=== PATIENT | male | born 1985 | race Caucasian/White ===

== ENCOUNTER 2023-01-25 00:01 | Emergency (ER) | payer OTHER, SELFPAY ==
--- NOTE | ~2023-01-25 | CT_ITS ---
Non-contrast Head CT History: Headache Technique: Axial non-contrast imaging of the brain was performed. Dose reduction technique was used on this scan by utilizing automated exposure control and iterative reconstruction technique. The dose -length product (DLP) was 681.00 mGy-cm. Findings: There is no evidence of intracranial hemorrhage, mass lesion, or acute infarct. Brain par enchyma appears normal. The ventricles and subarachnoid spaces are normal in size. The calvarium ap pears normal. The visualized paranasal sinuses and mastoid air cells are clear. Impression: No significant abnormality seen. Reviewed, dictated and finalized at location . [employer] Impression: No significant abnormality seen.
[2023-01-25 00:10] VITALS: BP 118/76; PULSE 63; RESP 18; TEMP 36.9; O2SAT 98
[2023-01-25 02:30] VITALS: BP 120/76; PULSE 90; RESP 15; O2SAT 98
[2023-01-25 02:36] LABS: Basophils Percent Auto 0.3 % (0.2-1.2); Eosinophils Percent Auto 0.2 % (0-4.4); Hematocrit 48.1 % (42.0-52.0); Hemoglobin 16.5 g/dL (14.0-18.0); Immature Granulocyte Absolute 0.04 K/mm3 (0.00-0.031); Immature Granulocyte Percent A 0.3 % (0-0.5); Lymphocytes Absolute Auto 1.78 K/mm3 (0.9-3.2); Lymphocytes Percent Auto 14.3 % (18.3-44.2); Mean Corpuscular HGB Conc 34.3 g/dl (32-36); Mean Corpuscular Hemoglobin 30.4 pg (26-34); Mean Corpuscular Volume 88.7 fl (80-100); Mean Platelet Volume 10.6 fl (7.4-10.4); Monocytes Absolute Auto 0.5 K/mm3 (0.1-0.6); Monocytes Percent Auto 3.8 % (2.6-8.5); Neutrophils Absolute Auto 10.1 K/mm3 (1.3-6.7); Neutrophils Percent Auto 81.1 % (45.5-73.1); Platelet Count Result 273 k/mm3 (150-375); Red Blood Count 5.42 M/mm3 (4.6-6.20); Red Cell Distribution Width 13.8 % (11.5-14.5); White Blood Count 12.5 K/mm3 (4.5-10.0)
[2023-01-25 02:49] LABS: Appearance Urine Clear (Clear); Bacteria Urine None Seen /hpf; Bilirubin Urine Negative (Negative); Blood Urine Negative (Negative); Color Urine Yellow (Yellow); Glucose Urine UA Negative (Negative); Granular Casts Urine Present /lpf; Hyaline Casts Urine Present /lpf; Ketones Urine 1+ mg/dL (Negative); Leukocyte Esterase Ur Negative LEU/UL (Negative); Mucus Urine Present /lpf; Nitrate Urine Negative (Negative); Protein Urine Trace mg/dL (Negative); RBC Urine 0-2 /hpf (0-2); Specific Grav Ur 1.017 (1.001-1.035); Squamous Epithelial Cell Urine None seen /hpf (Few); Urobilinogen Urine 0.2 mg/dL (<2.0); WBC Urine 0-5 /hpf; pH Urine 5.5 (5.0-9.0)
[2023-01-25 02:50] LABS: Add Urine Microscopic? YES
[2023-01-25 02:51] LABS: Alanine Aminotransferase 30 U/L (6-50); Albumin Level 4.4 g/dL (3.5-5.1); Alkaline Phosphatase 90 U/L (38-126); Anion Gap 14 mmol/L (8-16); Aspartate Amino Transferase 32 U/L (17-59); Bilirubin,Total 0.7 mg/dL (0.2-1.3); Blood Urea Nitrogen 12 mg/dL (9-20); Calcium 8.4 mg/dL (8.4-10.2); Carbon Dioxide 21 mmol/L (22-30); Chloride 103 mmol/L (98-107); Estimated CRCL calculation 86 ml/min; Estimated Glomerular Filt Rate > 60; Glucose 103 mg/dL (65-110); Lipase 80 U/L (23-300); Potassium 3.9 mmol/L (3.4-5.0); Sodium 138 mmol/L (137-145)
[2023-01-25] MEDS: diphenhydrAMINE HCl INJ 50 MG/ML VIAL IV PUSH (04:38)
[2023-01-25] MEDS: SODIUM CHLORIDE 0.9% IV 1,000 ML 999 ML IV CONT (04:39)
[2023-01-25] MEDS: PROCHLORPERAZINE EDISYLATE 10 MG/2 ML VIAL IV PUSH (04:40)
[2023-01-25 05:56] VITALS: BP 120/74; PULSE 72; RESP 15; O2SAT 98
--- NOTE | 2023-01-25 06:24 | ED.GENADULT ---
HPI - General Adult General Chief complaint: Nausea/Vomiting/Diarrhea Stated complaint: vomiting Time Seen by Provider: 01/25/23 04:06 History of Present Illness HPI narrative: patient is a 37-year-old gentleman presents emerged for chief complaint of headache nausea vomiting patient reports he has been having some discomfort in the left temporal area his hand as a typical headache migraine patient states that see a couple drinks and her having worsening pain patient has nausea and vomiting with this as well. The patient reports no trauma Related Data Allergies Allergy/AdvReac Type Severity Reaction Status Date / Time cefaclor [From Ceclor] Allergy Unknown Verified 01/25/23 00:10 sulfamethoxazole Allergy Unknown Verified 01/25/23 00:10 [From Septra] trimethoprim [From Septra] Allergy Unknown Verified 01/25/23 00:10 Review of Systems Review of Systems: A 10 system review of systems was completed on the patient and is negative except for what is stated in the HPI. Nursing and ancillary documentation was reviewed. Exam Narrative: GENERAL: Well-appearing, well-nourished, and in no acute distress. HEAD: Normocephalic, atraumatic. EYES: PERRLA and EOMI. ENT: Nares clear, no rhinorrhea or epistaxis. Mucous membranes moist. NECK: Supple. CHEST: Clear to auscultation. No respiratory distress. HEART: Regular rate and rhythm. No murmur heard. Normal peripheral pulses. ABDOMEN: Soft, nontender, nondistended, normal active bowel sounds. EXTREMITIES: Normal range of motion. No edema. SKIN: Warm, dry, no rash. NEURO: No focal deficits. Alert and oriented x3. PSYCH: Normal mood and affect. Course Vital Signs Vital signs: Vital Signs Temperature 36.9 C 01/25/23 00:10 Pulse Rate 63 01/25/23 00:10 Respiratory Rate 18 01/25/23 00:10 Blood Pressure 118/76 01/25/23 00:10 Pulse Oximetry 98 01/25/23 00:10 Oxygen Delivery Room Air 01/25/23 00:10 Temperature 36.9 C 01/25/23 00:10 Pulse Rate 72 01/25/23 05:56 Respiratory Rate 15 01/25/23 05:56 Blood Pressure 120/74 01/25/23 05:56 Pulse Oximetry 98 01/25/23 05:56 Oxygen Delivery Room Air 01/25/23 00:10 Medical Decision Making MDM Narrative Medical decision making narrative: differential diagnosis includes migraine headache, intracranial hemorrhage, CT head showed no acute findings patient received IV fluids and anti medics and patient is feeling much better at this time headache has essentially resolved. Vital Signs Vital Signs: Vital Signs Temperature 36.9 C 01/25/23 00:10 Pulse Rate 63 01/25/23 00:10 Respiratory Rate 18 01/25/23 00:10 Blood Pressure 118/76 01/25/23 00:10 Pulse Oximetry 98 01/25/23 00:10 Oxygen Delivery Room Air 01/25/23 00:10 Temperature 36.9 C 01/25/23 00:10 Pulse Rate 72 01/25/23 05:56 Respiratory Rate 15 01/25/23 05:56 Blood Pressure 120/74 01/25/23 05:56 Pulse Oximetry 98 01/25/23 05:56 Oxygen Delivery Room Air 01/25/23 00:10 Lab Data 01/25/23 02:28 01/25/23 02:28 Labs: Lab Results 01/25/23 01/25/23 Range/Units 02:10 02:28 WBC 12.5 H (4.5-10.0) K/mm3 RBC 5.42 (4.6-6.20) M/mm3 Hgb 16.5 (14.0-18.0) g/dL Hct 48.1 (42.0-52.0) % MCV 88.7 (80-100) fl MCH 30.4 (26-34) pg MCHC 34.3 (32-36) g/dl RDW 13.8 (11.5-14.5) % Plt Count 273 (150-375) k/mm3 MPV 10.6 H (7.4-10.4) fl Immature Gran % (Auto) 0.3 (0-0.5) % Neut % (Auto) 81.1 H (45.5-73.1) % Lymph % (Auto) 14.3 L (18.3-44.2) % Cannon % (Auto) 3.8 (2.6-8.5) % Eos % (Auto) 0.2 (0-4.4) % Baso % (Auto) 0.3 (0.2-1.2) % Lymph # (Auto) 1.78 (0.9-3.2) K/mm3 Cannon # (Auto) 0.5 (0.1-0.6) K/mm3 Eos # (Auto) 0.0 (0-0.3) K/mm3 Baso # (Auto) 0.0 (0.0-0.1) K/mm3 Abs Immat Gran (auto) 0.04 H (0.00-0.031) K/mm3 Absolute Neuts (auto) 10.1 H (1.3-6.7) K/mm3 Absolute Nucleated
[2023-01-25 06:45] VITALS: BP 138/64; PULSE 88; RESP 15; O2SAT 100
== END 2023-01-25 06:45 | disposition home or self-care (01) ==
PROVIDERS: Emergency Provider Emergency Medicine
DX: R11.2 Nausea with vomiting, unspecified (principal); R51.9 Headache, unspecified
CPT/HCPCS: 36415; 70450; 80053; 81001; 83690; 85025; 96361; 96374; 96375; 99284; J0780; J1200; J7030